=== PATIENT | male | born 1980 | race Caucasian/White ===

== ENCOUNTER 2025-06-02 13:26 | Emergency (ER) | payer OTHER ==
[2025-06-02] MEDS: Ketorolac 30 MG/ML SDV IVPUSH ONE (13:59)
[2025-06-02] MEDS: Iopamidol 755 Mg/ML 100 ML Bottle IV SCH (14:36)
== END 2025-06-02 15:43 | disposition home or self-care (01) ==
LOC: FB.ED 13:26
DX: K85.90 Acute pancreatitis without necrosis or infection, unspecified (principal); K26.6 Chronic or unspecified duodenal ulcer with both hemorrhage and perforation; F17.200 Nicotine dependence, unspecified, uncomplicated; Z88.8 Allergy status to other drugs, medicaments and biological substances
CPT/HCPCS: 74177; 96374; 96375; 99284; J1885; J2470; Q9967

== ENCOUNTER 2025-06-08 05:27 | Emergency (ER) | payer OTHER ==
[2025-06-08] MEDS: HYDROmorphone 2 MG/ML SDV IM ONE (05:49)
[2025-06-08] MEDS: hydrOXYzine HCl 50 MG/ML SDV IM ONE (05:49)
[2025-06-08] MEDS: Ondansetron 4 MG/2 ML SDV IM ONE (06:09)
== END 2025-06-08 07:24 | disposition home or self-care (01) ==
LOC: FB.ED 05:27
DX: G43.909 Migraine, unspecified, not intractable, without status migrainosus (principal); Z88.1 Allergy status to other antibiotic agents; Z79.899 Other long term (current) drug therapy
CPT/HCPCS: 96372; 99283; J1171; J3410

== ENCOUNTER 2025-06-24 07:49 | Day surgery (SDC) | payer OTHER ==
[~2025-06-24 07:49] MED LIST: Sodium Chloride 0.9% 10 ML Syringe FLUSH PRN
[2025-06-24] MEDS ORDERED: Propofol 200 MG/20 ML SDV IV ONE (07:50)
[2025-06-24] MEDS ORDERED: Midazolam 1 MG/ML 2 ML SDV IV ONE (07:50)
[2025-06-24] MEDS ORDERED: fentaNYL 100 MCG/2 ML SDV IV ONE (07:50)
[2025-06-24] MEDS: Lactated Ringers 1,000 ML IV SCH (08:29)
== END 2025-06-24 10:00 | disposition home or self-care (01) ==
LOC: FB.SDS 07:49
PROVIDERS: ATTEND Surgery
DX: K29.50 Unspecified chronic gastritis without bleeding (principal); K29.80 Duodenitis without bleeding; K31.89 Other diseases of stomach and duodenum; K20.90 Esophagitis, unspecified without bleeding; K85.90 Acute pancreatitis without necrosis or infection, unspecified; R68.81 Early satiety; F17.210 Nicotine dependence, cigarettes, uncomplicated; Z79.1 Long term (current) use of non-steroidal anti-inflammatories (NSAID); Z88.8 Allergy status to other drugs, medicaments and biological substances; Z79.899 Other long term (current) drug therapy
CPT/HCPCS: 00731; 43239; 88305; 88312; 88342; A9270; J2250; J2704; J3010; J7120